=== PATIENT | female | born 2000 | race Caucasian/White ===

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

== ENCOUNTER 2024-03-23 19:38 | Emergency (ER) | payer OTHER ==
[~2024-03-23] VITALS: Ht 154.9 cm; Wt 54.1 kg
[~2024-03-23 19:38] MED LIST: ACET-9800 PO; FERR325E14 PO
[2024-03-23 19:45] VITALS: BP 113/66; PULSE 77; RESP 16; TEMP 99.2; O2SAT 99
[2024-03-23] MEDS ORDERED: ONDA-188 SL (21:25)
[2024-03-23] MEDS ORDERED: DEXT5SYR3 PO (21:25)
== END 2024-03-23 21:32 | disposition home or self-care (01) ==
LOC: MED 19:38
DX: J06.9 Acute upper respiratory infection, unspecified (principal); R04.2 Hemoptysis; Z79.899 Other long term (current) drug therapy
CPT/HCPCS: 99283